=== PATIENT | male | born 1975 | race Two or more races ===

== ENCOUNTER 2016-10-08 17:47 | Emergency (ER) | payer SELFPAY ==
[~2016-10-08] VITALS: Ht 167.6 cm; Wt 72.6 kg
[2016-10-08 17:51] VITALS: BP 161/73
== END 2016-10-08 20:19 | disposition home or self-care (01) ==
LOC: ER 17:51
DX: R51 Headache (principal); R42 Dizziness and giddiness; R53.1 Weakness